=== PATIENT | female | born 1950 | race Caucasian/White ===

== ENCOUNTER 2018-02-02 07:19 | Day surgery (SDC) | payer OTHER ==
[~2018-02-02] VITALS: Ht 167.6 cm; Wt 131.1 kg
[2018-02-02] MEDS ORDERED: ASMANEX220 MC2 INH (08:22)
[2018-02-02] MEDS ORDERED: ADVAIR 500-501 EACH INH (08:22)
[2018-02-02] MEDS ORDERED: JANUVIA100 MG PO (08:23)
[2018-02-02] MEDS ORDERED: LIPITOR40 MG PO (08:23)
[2018-02-02] MEDS ORDERED: GLUCOPHAGE500 MG PO (08:23)
[2018-02-02] MEDS ORDERED: BENICAR40 MG PO (08:24)
[2018-02-02] MEDS ORDERED: MONTELUKAST SOD10 MG PO (08:24)
[2018-02-02] MEDS ORDERED: PROAIR RESPICL90 MCG (08:25)
[2018-02-02] MEDS ORDERED: TERBINAFINE HC250 MG PO (08:26)
[2018-02-02] MEDS ORDERED: VITAMIN D250000 UNIT PO (08:27)
--- NOTE | 2018-02-02 09:34 | NUR ---
02/02/18 0934 Ana Quintana 0925 PT ARRIVES TO PACU, ALERT. DENIES PAIN OR NAUSEA. PT ON LEFT SIDE, STATES "I'M COMFORTABLE". BREATHING EVEN AND NON LABORED.
--- NOTE | 2018-02-02 11:46 | NUR ---
PT ALERT, ORIENTED AND PLEASANT. ROUTINE SCOPE FOR PT-DID NTO SEEM TO HAVE ANY QUESTIONS OR ISSUES. SHE DID REQUEST PRAYER, WILL FOLLOW NEEDED
--- NOTE | 2018-02-03 08:49 | OR ---
[facility] [address], [place] [address] Signed DATE OF OPERATION: 02/02/2018 SURGEON: Nathaniel Pond MD PREOPERATIVE DIAGNOSIS: History of adenomatous polyp at 25 cm, in 2007. POSTOPERATIVE DIAGNOSES: 1. Polyps x8. 2. Sigmoid diverticulosis. PROCEDURE: Total colonoscopy to cecum with hot snare polypectomy x4 and cold morcellation polypectomy x4. ANESTHESIA: Intravenous sedation, fentanyl 100 mcg and Versed 9 mg. INDICATION: A 67-year-old white woman, a patient of Dr. Friedman and Dr. Manzano with history of adenomatous polyp at 25 cm in 2007. She is here for surveillance colonoscopy understanding the risks of bleeding, infection, and perforation. She understands these risks and wished to proceed. FINDINGS: The prep was good. She had numerous diverticula of the sigmoid colon. There were ultimately found to be eight polyps extending from the left colon down to the rectum all excised with various combinations of cold morcellation or a hot snare polypectomy technique. None of the polyps were larger than a centimeter and none appeared to be worrisome for malignancy clinically. DESCRIPTION OF PROCEDURE: The patient was brought to the endoscopy suite, placed in lateral decubitus position and given intravenous sedation to the point of slurred speech and nystagmus. Digital rectal examination was normal. An Olympus video colonoscope was passed in the rectum and manipulated throughout the colon noting a sessile polyp at about 25 cm. The scope was passed beyond this where numerous diverticula were also noted. The scope ultimately advanced to the right colon and the cecum. The ileocecal valve appeared to be normal. Photograph was taken. The Electronically Signed By: NATHANIEL POND MD 02/03/18 0849 PATIENT NAME: GAL HUSSEIN OPERATIVE REPORT DATE OF : 54 REPORT #: [id number] PHYSICIAN: NATHANIEL POND MD PCP: JEFFRY MANZANO DO REPORT IS CONFIDENTIAL AND NOT TO BE RELEASED WITHOUT AUTHORIZATION [facility] [address], [place] [address] Signed scope was carefully withdrawn from that point and examination throughout undertaken showing no sign of abnormality other than diverticular change of the left colon. At approximately 40 cm from the anal canal was a somewhat sessile adenomatous appearing polyp as noted on narrow band imaging. This was excised with hot snare polypectomy technique. Polyp remnant was passed for pathology. The scope was further withdrawn and another similar such polyp was noted at about 35 cm. It too was excised similarly. Scope was withdrawn and another slightly pedunculated small polyp was noted at 25 cm which was excised and yet another at 20 cm, excised also with snare polypectomy technique. There were 2 small hyperplastic appearing polyps nearby. They were excised with cold morcellation technique. Another at 10 cm, she had another in the low rectum. In total, 8 such polyps were excised. Retroflexed view was undertaken showing no other findings. The patient was then taken to the recovery room in good condition. CONCLUDING DIAGNOSIS: Multiple polyps of left colon, sigmoid, and rectum. PLAN: Recommend repeat colonoscopy in one year, given more than six polyps are noted, or sooner of course if she should have problems in the meantime. A high-fiber diet would be appropriate for diverticulosis. Nathaniel Pond MD JM/MODL /[id number] cc: MD Jeffry Hartman DO Copies: GAL FRIEDMAN MD, KENT DO ~ Electronically Signed By: NATHANIEL POND MD 02/03/18 0849 PATIENT NAME: LYDIA CORTEZGAL Payne OPERATIVE REPORT DATE OF : 54 REPORT #: [id number] PHYSICIAN: NATHANIEL POND MD PCP: JEFFRY MANZANO DO REPORT IS CONFIDENTIAL AND NOT TO BE RELEASED WITHOUT AUTHORIZATION
== END 2018-02-02 10:25 | disposition home or self-care (01) ==
LOC: DS 07:19 → OPS 07:19 → DS 08:30 → OPS 08:30
PROVIDERS: Surgery
PROC: 0DBE8ZZ Excision of Large Intestine, Via Natural or Artificial Opening Endoscopic (ICD-10-PCS; 2018-02-02)
PROC: 0DBP8ZZ Excision of Rectum, Via Natural or Artificial Opening Endoscopic (ICD-10-PCS; principal; 2018-02-02 08:30)
DX: Z12.11 Encounter for screening for malignant neoplasm of colon (principal); D12.6 Benign neoplasm of colon, unspecified; K63.5 Polyp of colon; K62.1 Rectal polyp; K57.30 Diverticulosis of large intestine without perforation or abscess without bleeding; J45.909 Unspecified asthma, uncomplicated; E11.9 Type 2 diabetes mellitus without complications; K21.9 Gastro-esophageal reflux disease without esophagitis; E78.00 Pure hypercholesterolemia, unspecified; I10 Essential (primary) hypertension; E66.01 Morbid (severe) obesity due to excess calories; Z86.010 Personal history of colon polyps; Z68.42 Body mass index [BMI] 45.0-49.9, adult
CPT/HCPCS: 99153; G0500; J2250; J3010; J7120